=== PATIENT | female | born 1970 | race Caucasian/White ===

== ENCOUNTER 2018-05-25 11:42 | Inpatient (IN) ==
[2018-05-25] MEDS ORDERED: ACETAMINOPHEN 325 MG TABLET PO PRN (12:43)
[2018-05-25] MEDS ORDERED: MAGNESIUM SULF RIDER 2 GM in PREMIX 1 EACH IV PRN (12:43)
[2018-05-25] MEDS ORDERED: MAGNESIUM SULF RIDER 4 GM in PREMIX 1 EACH IV PRN (12:43)
[2018-05-25] MEDS ORDERED: LACTULOSE 20 GM/30 ML UDCUP PO PRN (12:43)
[2018-05-25] MEDS ORDERED: CARVEDILOL 3.125 MG TABLET PO SCH (13:01)
[2018-05-25 14:05] LABS: Basophils % 0.5 % (0.0-0.8); Eosinophils # 0.1 10*3/uL (0.0-0.87); Eosinophils % 1.2 % (0.00-10.9); Hematocrit 31.3 VOL% (35.7-47.0); Hemoglobin 10.9 GM/DL (12.0-16.0); Immature Granulocytes % 0.8 %; Immature Granulocytes Absolute 0.05 #; Lymphocytes # 1.5 10*3/uL (1.4-4.0); Lymphocytes % 25.8 % (21.3-54.2); Mean Corpuscular HGB Conc 34.8 GM/DL (32-36); Mean Corpuscular Hemoglobin 33 PG (27-34); Mean Corpuscular Volume 95.1 FL (87-102); Mean Platelet Volume 9.2 FL (9.6-12.0); Monocytes # 0.9 10*3/uL (0.11-0.8); Monocytes % 15.6 % (1.7-12.7); Neutrophils # 3.3 10*3/uL (1.4-7.4); Neutrophils % 56.1 % (38.7-73.9); Platelet Count 125 T/CUMM (130-400); Red Blood Count 3.29 MC/CUMM (3.8-5.5); Red Cell Distribution Width 12.6 % (9.3-17.3)
[2018-05-25 14:35] LABS: Alanine Aminotransferase 35 U/L (13-56); Albumin 2.4 G/DL (3.4-5.0); Alkaline Phosphatase 100 U/L (45-117); Aspartate Amino Transferase 181 U/L (0-37); Bilirubin,Total < 0.39 MG/DL (0.2-1.0); Blood Urea Nitrogen 13 MG/DL (7-18); Calcium 8.2 MG/DL (8.5-10.1); Glucose 180 MG/DL (74-106); Osmolality,Calculated 290.8 MOS/KG (273-304); Potassium 4.2 MMOL/L (3.5-5.1); Sodium 144 MMOL/L (136-145); Total Protein 5.2 G/DL (6.4-8.3)
[2018-05-25 14:42] LABS: Risk Ratio 2.04; Thyroid Stimulating Hormone 1.3 uIU/ml (0.358-3.74)
[2018-05-25] MEDS: PANTOPRAZOLE 40 MG TABLET PO SCH (15:30)
[2018-05-25] MEDS: PHENYTOIN 100 MG/4 ML UDCUP PO SCH ×2 (15:30→16:30)
[2018-05-25] MEDS: ASPIRIN CHEW 81 MG TABLET PO SCH (15:30)
[2018-05-25 15:56] LABS: CKMB % 17.7 %
[2018-05-25 15:58] LABS: Troponin I 70.9 NG/ML (0.00-0.045)
[2018-05-25 17:34] LABS: Apearance,Urine CLOUDY (Clear); Bacteria,Urine Occasional /HPF (Few); Bilirubin,Urine Negative (Negative); Blood, Urine Small mg/dL (Negative); Glucose,Urine (UA) >=500 mg/dL (Negative); Hyaline Casts,Urine 3 /LPF (0-3); Ketones,Urine Negative (Negative); Mucus,Urine Occasional /LPF (Occasional); Nitrite,Urine Negative (Negative); Protein,Urine 100 MG/DL; Urine Color Yellow (Yellow); Urine Specific Gravity 1.015 (1.001-1.035); Urine Urobilinogen < 2.0 EU/DL (0.2-1.0); WBC,Urine 2 /HPF (0-6)
[2018-05-25] MEDS: ONDANSETRON 4 MG/2 ML VIAL IV PRN ×2 (18:00→21:29)
[2018-05-25] MEDS ORDERED: DOBUTamine 500 MG/250 ML PREMIX IV PRN (18:17)
[2018-05-25] MEDS ORDERED: DOPamine 800 MG/250 ML PREMIX IV ONE (20:25)
[2018-05-25] MEDS: DOPamine 800 MG/250 ML PREMIX IV PRN (20:26)
[2018-05-25] MEDS ORDERED: SODIUM CHLORIDE 0.9% 500 ML IV ONE (20:52)
[2018-05-25] MEDS ORDERED: DOPamine 800 MG/250 ML PREMIX IV PRN (21:02)
[2018-05-25] MEDS ORDERED: PROMETHAZINE INJ 25 MG in SODIUM CHLORIDE 0.9% 50 ML IV PRN (21:07)
[2018-05-25 21:26] LABS: CKMB % 14.9 %
[2018-05-25 21:35] LABS: Troponin I 78.6 NG/ML (0.00-0.045)
[2018-05-26] MEDS: PHENYTOIN 100 MG/4 ML UDCUP PO SCH ×2 (01:36→08:30)
[2018-05-26] MEDS: ENOXAPARIN 40 MG/0.4 ML SYRINGE SUBCUT SCH ×4 (01:37→22:15)
[2018-05-26] MEDS: ROSUVASTATIN 10 MG TABLET PO SCH ×2 (01:38→22:15)
[2018-05-26 04:35] LABS: Basophils % 0.3 % (0.0-0.8); Eosinophils % 0.1 % (0.00-10.9); Hematocrit 30.7 VOL% (35.7-47.0); Hemoglobin 10.5 GM/DL (12.0-16.0); Immature Granulocytes % 0.5 %; Immature Granulocytes Absolute 0.06 #; Lymphocytes # 0.7 10*3/uL (1.4-4.0); Lymphocytes % 5.3 % (21.3-54.2); Mean Corpuscular HGB Conc 34.2 GM/DL (32-36); Mean Corpuscular Hemoglobin 33 PG (27-34); Mean Corpuscular Volume 95.9 FL (87-102); Mean Platelet Volume 9.5 FL (9.6-12.0); Monocytes # 1.9 10*3/uL (0.11-0.8); Monocytes % 14.9 % (1.7-12.7); Neutrophils # 10.2 10*3/uL (1.4-7.4); Neutrophils % 78.9 % (38.7-73.9); Platelet Count 145 T/CUMM (130-400); Red Cell Distribution Width 12.5 % (9.3-17.3)
[2018-05-26 04:53] LABS: Albumin 2.4 G/DL (3.4-5.0); Bilirubin,Total 0.7 MG/DL (0.2-1.0); Calcium 7.8 MG/DL (8.5-10.1); Osmolality,Calculated 296.8 MOS/KG (273-304); Potassium 4.4 MMOL/L (3.5-5.1); Total Protein 5.3 G/DL (6.4-8.3)
[2018-05-26 05:17] LABS: CKMB % 13.2 %
[2018-05-26 05:19] LABS: Troponin I 55.6 NG/ML (0.00-0.045)
[2018-05-26] MEDS: ASPIRIN CHEW 81 MG TABLET PO SCH (08:30)
[2018-05-26] MEDS: PANTOPRAZOLE 40 MG TABLET PO SCH (08:30)
[2018-05-26] MEDS ORDERED: ENOXAPARIN 40 MG/0.4 ML SYRINGE SUBCUT SCH (09:00)
[2018-05-26] MEDS: DOPamine 800 MG/250 ML PREMIX IV PRN (10:26)
[2018-05-26] MEDS ORDERED: SODIUM CHLORIDE 0.9% 1,000 ML IV SCH (10:30)
[2018-05-26] MEDS: AMIODARONE 200 MG TABLET PO SCH ×2 (11:34→22:14)
[2018-05-26] MEDS: PHENYTOIN ER 100 MG CAPSULE PO SCH (11:35)
[2018-05-26] MEDS: INSULIN REGULAR 100 UNIT/ML SUBCUT SCH ×3 (12:09→22:12)
[2018-05-26] MEDS ORDERED: ALBUTEROL/IPRATROPIUM 3 ML NEB RESP TX PRN (15:12)
[2018-05-26] MEDS: MONTELUKAST 10 MG TABLET PO SCH (16:08)
[2018-05-26] MEDS: ALBUTEROL/IPRATROPIUM 3 ML NEB RESP TX SCH (19:31)
[2018-05-26] MEDS: POLYETHYLENE GLYCOL POWDER 17 GM PACK PO SCH (22:22)
[2018-05-27 04:49] LABS: Basophils % 0.2 % (0.0-0.8); Hematocrit 27.7 VOL% (35.7-47.0); Hemoglobin 9.5 GM/DL (12.0-16.0); Immature Granulocytes % 0.4 %; Immature Granulocytes Absolute 0.05 #; Lymphocytes # 0.6 10*3/uL (1.4-4.0); Lymphocytes % 4.4 % (21.3-54.2); Mean Corpuscular HGB Conc 34.3 GM/DL (32-36); Mean Corpuscular Hemoglobin 33 PG (27-34); Mean Corpuscular Volume 95.5 FL (87-102); Mean Platelet Volume 9.7 FL (9.6-12.0); Monocytes # 1.7 10*3/uL (0.11-0.8); Monocytes % 12.7 % (1.7-12.7); Neutrophils # 10.7 10*3/uL (1.4-7.4); Neutrophils % 82.3 % (38.7-73.9); Platelet Count 104 T/CUMM (130-400); Red Cell Distribution Width 12.6 % (9.3-17.3)
[2018-05-27 05:07] LABS: % Iron Saturation 13.2 % (18-50)
[2018-05-27 05:33] LABS: Lymphocytes 4 % (20-55); Segmented Neutrophils 90 % (50-85); Total Cells Counted 100
[2018-05-27 05:34] LABS: Platelet Estimate Decreased; Polychromasia Few
[2018-05-27 07:29] LABS: CKMB % 6.8 %; Calcium 7.8 MG/DL (8.5-10.1); Osmolality,Calculated 285.4 MOS/KG (273-304)
[2018-05-27 07:33] LABS: Troponin I 44.4 NG/ML (0.00-0.045)
[2018-05-27] MEDS: ALBUTEROL/IPRATROPIUM 3 ML NEB RESP TX SCH ×4 (08:12→19:25)
[2018-05-27] MEDS ORDERED: PANTOPRAZOLE 40 MG VIAL IV SCH (09:00)
[2018-05-27] MEDS: SODIUM CHLORIDE 0.9% 1,000 ML IV SCH ×3 (09:02→20:30)
[2018-05-27] MEDS: DOPamine 800 MG/250 ML PREMIX IV PRN (09:02)
[2018-05-27] MEDS ORDERED: CLOPIDOGREL 75 MG TABLET PO ONE (09:06)
[2018-05-27] MEDS: INSULIN REGULAR 100 UNIT/ML SUBCUT SCH ×4 (09:33→20:31)
[2018-05-27] MEDS: PHENYTOIN ER 100 MG CAPSULE PO SCH (09:53)
[2018-05-27] MEDS: POLYETHYLENE GLYCOL POWDER 17 GM PACK PO SCH ×2 (09:57→20:37)
[2018-05-27] MEDS: AMIODARONE 200 MG TABLET PO SCH ×2 (09:57→20:31)
[2018-05-27] MEDS: MONTELUKAST 10 MG TABLET PO SCH (09:58)
[2018-05-27] MEDS: ASPIRIN CHEW 81 MG TABLET PO SCH (10:00)
[2018-05-27] MEDS ORDERED: SODIUM CHLORIDE 0.9% 500 ML IV ONE (12:15)
[2018-05-27] MEDS: PANTOPRAZOLE 40 MG VIAL IV SCH ×2 (14:32→20:31)
[2018-05-27] MEDS: ENOXAPARIN 40 MG/0.4 ML SYRINGE SUBCUT SCH ×2 (14:37→20:31)
[2018-05-27] MEDS: ROSUVASTATIN 10 MG TABLET PO SCH (20:31)
[2018-05-27] MEDS: METOPROLOL TARTRATE 25 MG TABLET PO SCH (20:32)
[2018-05-27] MEDS: diphenhydrAMINE 50 MG/1 ML VIAL IV PRN (21:44)
[2018-05-28] MEDS: SODIUM CHLORIDE 0.9% 1,000 ML IV SCH ×6 (01:30→22:33)
[2018-05-28 05:21] LABS: Basophils % 0.3 % (0.0-0.8); Eosinophils % 0.3 % (0.00-10.9); Hematocrit 26.6 VOL% (35.7-47.0); Hemoglobin 8.7 GM/DL (12.0-16.0); Immature Granulocytes % 0.7 %; Immature Granulocytes Absolute 0.07 #; Mean Corpuscular HGB Conc 32.7 GM/DL (32-36); Mean Corpuscular Hemoglobin 34 PG (27-34); Mean Corpuscular Volume 103.5 FL (87-102); Mean Platelet Volume 9.6 FL (9.6-12.0); Monocytes # 1.2 10*3/uL (0.11-0.8); Monocytes % 11.5 % (1.7-12.7); Neutrophils # 8.3 10*3/uL (1.4-7.4); Neutrophils % 78.2 % (38.7-73.9); Platelet Count 90 T/CUMM (130-400); Red Blood Count 2.57 MC/CUMM (3.8-5.5); Red Cell Distribution Width 13.9 % (9.3-17.3); White Blood Count 10.6 T/CUMM (4-12)
[2018-05-28 05:51] LABS: Calcium 7.6 MG/DL (8.5-10.1); Osmolality,Calculated 283.4 MOS/KG (273-304); Potassium 4.2 MMOL/L (3.5-5.1)
[2018-05-28 06:12] LABS: Band Neutrophils 2 % (0-10); Eosinophils 1 % (0-10); Hypochromasia Slight; Lymphocytes 10 % (20-55); Macrocytosis Slight; Segmented Neutrophils 78 % (50-85); Total Cells Counted 100
[2018-05-28] MEDS: ALBUTEROL/IPRATROPIUM 3 ML NEB RESP TX SCH ×4 (07:02→20:29)
[2018-05-28 07:10] VITALS: BP 96/49
[2018-05-28] MEDS: DOPamine 800 MG/250 ML PREMIX IV PRN (09:00)
[2018-05-28] MEDS: INSULIN REGULAR 100 UNIT/ML SUBCUT SCH ×4 (10:14→21:24)
[2018-05-28] MEDS: PHENYTOIN ER 100 MG CAPSULE PO SCH (10:38)
[2018-05-28] MEDS: POLYETHYLENE GLYCOL POWDER 17 GM PACK PO SCH ×2 (10:38→21:24)
[2018-05-28] MEDS: MONTELUKAST 10 MG TABLET PO SCH (10:38)
[2018-05-28] MEDS: PANTOPRAZOLE 40 MG VIAL IV SCH (10:39)
[2018-05-28] MEDS: CLOPIDOGREL 75 MG TABLET PO SCH (10:39)
[2018-05-28] MEDS: ENOXAPARIN 40 MG/0.4 ML SYRINGE SUBCUT SCH ×2 (10:39→10:59)
[2018-05-28] MEDS: AMIODARONE 200 MG TABLET PO SCH ×2 (10:39→21:24)
[2018-05-28] MEDS: ASPIRIN CHEW 81 MG TABLET PO SCH (11:00)
[2018-05-28] MEDS: METOPROLOL TARTRATE 25 MG TABLET PO SCH (11:00)
[2018-05-28] MEDS ORDERED: PHENYTOIN ER 100 MG CAPSULE PO ONE (16:10)
[2018-05-28] MEDS: metFORMIN 500 MG TABLET PO SCH (16:26)
[2018-05-28] MEDS: GABAPENTIN 100 MG CAPSULE PO SCH ×2 (17:23→21:24)
[2018-05-28] MEDS: IRON (CARBONYL) 45 MG TABLET PO SCH ×2 (17:23→21:24)
[2018-05-28 17:55] LABS: Folate 4.6 NG/ML (5.4-24.0)
[2018-05-28] MEDS: PANTOPRAZOLE 40 MG TABLET PO SCH (21:24)
[2018-05-28] MEDS: ROSUVASTATIN 10 MG TABLET PO SCH (21:24)
[2018-05-28] MEDS: diphenhydrAMINE 50 MG/1 ML VIAL IV PRN (23:30)
[2018-05-29] MEDS: LORazepam 2 MG/1 ML VIAL IV PRN ×7 (00:38→22:14)
[2018-05-29] MEDS: DOPamine 800 MG/250 ML PREMIX IV PRN ×2 (02:00→17:56)
[2018-05-29] MEDS: SODIUM CHLORIDE 0.9% 1,000 ML IV SCH ×4 (03:30→19:30)
[2018-05-29 05:32] LABS: Basophils % 0.3 % (0.0-0.8); Eosinophils # 0.1 10*3/uL (0.0-0.87); Eosinophils % 0.9 % (0.00-10.9); Hematocrit 25.7 VOL% (35.7-47.0); Hemoglobin 8.9 GM/DL (12.0-16.0); Immature Granulocytes % 1.1 %; Immature Granulocytes Absolute 0.08 #; Lymphocytes # 1.2 10*3/uL (1.4-4.0); Lymphocytes % 16.3 % (21.3-54.2); Mean Corpuscular HGB Conc 34.6 GM/DL (32-36); Mean Corpuscular Hemoglobin 33 PG (27-34); Mean Corpuscular Volume 96.3 FL (87-102); Mean Platelet Volume 9.9 FL (9.6-12.0); Monocytes # 0.8 10*3/uL (0.11-0.8); Monocytes % 10.6 % (1.7-12.7); Neutrophils # 5.4 10*3/uL (1.4-7.4); Neutrophils % 70.8 % (38.7-73.9); Red Blood Count 2.67 MC/CUMM (3.8-5.5); Red Cell Distribution Width 12.8 % (9.3-17.3); White Blood Count 7.6 T/CUMM (4-12)
[2018-05-29 05:39] LABS: Calcium 7.1 MG/DL (8.5-10.1); Osmolality,Calculated 280.4 MOS/KG (273-304)
[2018-05-29 05:51] LABS: Platelet Count 163 T/CUMM (130-400)
[2018-05-29] MEDS: ALBUTEROL/IPRATROPIUM 3 ML NEB RESP TX SCH ×4 (07:52→20:13)
[2018-05-29] MEDS ORDERED: PHENYLEPHRINE DRIP 40 MG/250 ML PREMIX IV PRN (07:54)
[2018-05-29] MEDS ORDERED: PHENYLEPHRINE DRIP 40 MG/250 ML PREMIX IV ONE (07:56)
[2018-05-29] MEDS: INSULIN REGULAR 100 UNIT/ML SUBCUT SCH ×4 (08:15→21:21)
[2018-05-29] MEDS: metFORMIN 500 MG TABLET PO SCH ×2 (08:17→16:01)
[2018-05-29] MEDS: AMIODARONE 200 MG TABLET PO SCH ×2 (09:12→10:04)
[2018-05-29] MEDS: PANTOPRAZOLE 40 MG TABLET PO SCH ×3 (09:12→18:14)
[2018-05-29] MEDS: PHENYTOIN ER 100 MG CAPSULE PO SCH ×3 (09:12→21:21)
[2018-05-29] MEDS: POLYETHYLENE GLYCOL POWDER 17 GM PACK PO SCH ×3 (09:12→21:21)
[2018-05-29] MEDS: ASPIRIN EC 81 MG TABLET PO SCH ×2 (09:12→10:04)
[2018-05-29] MEDS: MONTELUKAST 10 MG TABLET PO SCH ×2 (09:13→10:05)
[2018-05-29] MEDS: CLOPIDOGREL 75 MG TABLET PO SCH ×2 (09:13→10:05)
[2018-05-29] MEDS: ENOXAPARIN 40 MG/0.4 ML SYRINGE SUBCUT SCH (09:13)
[2018-05-29] MEDS: GABAPENTIN 100 MG CAPSULE PO SCH ×2 (09:13→10:05)
[2018-05-29] MEDS: IRON (CARBONYL) 45 MG TABLET PO SCH ×2 (10:04→21:21)
[2018-05-29 14:55] LABS: TB2 Ag Minus Result 0 IU/mL
[2018-05-29] MEDS: ROSUVASTATIN 10 MG TABLET PO SCH (21:21)
[2018-05-30] MEDS: SODIUM CHLORIDE 0.9% 1,000 ML IV SCH ×3 (00:30→11:22)
[2018-05-30] MEDS: LORazepam 2 MG/1 ML VIAL IV PRN ×3 (01:24→11:20)
[2018-05-30] MEDS ORDERED: EPINEPHrine 1 MG/ML VIAL ONE (05:01)
[2018-05-30] MEDS ORDERED: MAGNESIUM SULF RIDER 50 ML IV ONE (05:02)
[2018-05-30] MEDS: PANTOPRAZOLE 40 MG TABLET PO SCH (08:18)
[2018-05-30] MEDS: INSULIN REGULAR 100 UNIT/ML SUBCUT SCH (08:19)
[2018-05-30] MEDS: metFORMIN 500 MG TABLET PO SCH (08:19)
[2018-05-30] MEDS: ASPIRIN EC 81 MG TABLET PO SCH (08:19)
[2018-05-30] MEDS: PHENYTOIN ER 100 MG CAPSULE PO SCH (08:19)
[2018-05-30] MEDS: POLYETHYLENE GLYCOL POWDER 17 GM PACK PO SCH (08:20)
[2018-05-30] MEDS: IRON (CARBONYL) 45 MG TABLET PO SCH (08:20)
[2018-05-30] MEDS: CLOPIDOGREL 75 MG TABLET PO SCH (08:21)
[2018-05-30] MEDS: MONTELUKAST 10 MG TABLET PO SCH (08:21)
[2018-05-30] MEDS: DOPamine 800 MG/250 ML PREMIX IV PRN (08:22)
[2018-05-30] MEDS: ALBUTEROL/IPRATROPIUM 3 ML NEB RESP TX SCH (08:36)
[2018-05-30] MEDS ORDERED: AMIODARONE 200 MG TABLET PO SCH (09:00)
[2018-05-30] MEDS: ENOXAPARIN 40 MG/0.4 ML SYRINGE SUBCUT SCH (09:13)
[2018-05-30] MEDS ORDERED: MORPHINE 4 MG/1 ML VIAL IV ONE (10:50)
[2018-05-30] MEDS ORDERED: fentaNYL 12 MCG/HR PATCH TRANSDERM SCH (11:00)
[2018-05-30] MEDS ORDERED: MORPHINE IV PRN (11:00)
[2018-05-30] MEDS ORDERED: SODIUM CHLORIDE 0.9% IV PRN (11:00)
[2018-05-30] MEDS ORDERED: LORazepam 2 MG/1 ML VIAL IV PRN ×2 (11:03→11:18)
[2018-05-30] MEDS ORDERED: MORPHINE 4 MG/1 ML VIAL IV PRN (11:03)
== END 2018-05-30 11:35 | disposition expired ==
LOC: INTOOBSV 11:42 → N.CC 11:42
PROVIDERS: ADMIT Internal Medicine Cardiovascular Disease; ATTEND Internal Medicine Cardiovascular Disease